=== PATIENT | male | born 1990 | race Caucasian/White ===

== ENCOUNTER 2021-10-17 20:46 | Emergency (ER) | payer BC ==
[2021-10-17] MEDS ORDERED: AMOXicillin 250 MG CAP ONE (22:00)
== END 2021-10-17 22:07 | disposition home or self-care (01) ==
LOC: BURERS 20:46
DX: J06.9 Acute upper respiratory infection, unspecified (principal); H65.91 Unspecified nonsuppurative otitis media, right ear; F17.220 Nicotine dependence, chewing tobacco, uncomplicated; Z20.822 Contact with and (suspected) exposure to COVID-19
CPT/HCPCS: 87804; 99283; U0003; U0005